=== PATIENT | female | born 1995 | race Caucasian/White ===

== ENCOUNTER 2020-04-23 12:24 | Inpatient (IN) | payer MEDICAID ==
[~2020-04-23] VITALS: Ht 172.7 cm; Wt 83.9 kg
[2020-04-23] MEDS ORDERED: IV NS 0.9% 1,000 ML BAG IV ONE ×2 (13:00→14:00)
[2020-04-23] MEDS ORDERED: LORAZEPAM INJ 2 MG/ML VIAL IV ONE (13:00)
[2020-04-23 13:47] LABS: CALCIUM, SERUM 7.1 mg/dL (8.5-10.1); CREATININE 2.3 mg/dL (0.6-1.3)
--- NOTE | 2020-04-23 13:52 | NUR ---
YONATHAN FROM [facility] WHERE PATIENT IS STAYING. AAOX4. TACHYPNEIC. BROUGHT IN FOR L UPPER BACK PAIN X 3 DAYS 05/05. PER PT, SHE HAS BEEN HAVING PAIN ON THE L UPPER BACK AND DIFFICULT TO MOVE. PT REPORTS THAT SHE DID HEROIN EARLIER THIS MORNING AROUND 1000. PT IS NOTED WITH MULTIPLE OPEN WOUND ON THE L LOWER EXTREMETY. PT IS ALSO NOTED WITH TEMP OF 103.2N ORALLY. PT IS TACHYCARDIC ON MONITOR, NOTED @ 150-160S. WAS AT THE BEDSIDE FOR EVAL. ORDERS RECEIVED NOTED AND CARRIED OUT. IV LINE ESTABLISHED ON THE R EJ 20G. BLOOD DRAWN AND GIVEN TO BREAKFAST HOST. PT IN MONITOR. EKG DONE AT BEDSIDE
[2020-04-23] MEDS ORDERED: FLUV100T3 PO (13:53)
[2020-04-23] MEDS ORDERED: CLON1TAB PO (13:53)
[2020-04-23] MEDS ORDERED: GABA600T12 PO (13:53)
[2020-04-23] MEDS ORDERED: ALBU8.5H8 IH (13:53)
[2020-04-23 13:58] LABS: BASOPHILS % (AUTO) 0.1 % (0.0-2.0); EOSINOPHILS % (AUTO) 0.2 % (0.0-6.0); HEMATOCRIT 35 % (33-45); HEMOGLOBIN 11.6 g/dL (11.5-14.8); LYMPHOCYTES # (AUTO) 0.9 /CMM (0.8-4.8); LYMPHOCYTES % (AUTO) 5.1 % (20.0-44.0); MEAN CORPUSCULAR HGB CONC 33 g/dl (31.0-36.0); MEAN CORPUSCULAR VOLUME 79 fL (82-100); MONOCYTES # (AUTO) 1.5 /CMM (0.1-1.30); MONOCYTES % (AUTO) 8.7 % (2.0-12.0); NEUTROPHILS # (AUTO) 15.3 /CMM (1.8-8.9); NEUTROPHILS % (AUTO) 85.9 % (43.0-81.0); PLATELET COUNT (AUTO) 61 /CMM (150-450); RED BLOOD CELL COUNT(AUTO) 4.48 MIL/uL (4.0-5.2); WHITE BLOOD COUNT (AUTO) 17.8 K/uL (4.3-11.0)
[2020-04-23] MEDS ORDERED: ACETAMINOPHEN ES 500 MG TABLET PO ONE (14:00)
[2020-04-23] MEDS ORDERED: VANCOMYCIN 1 GM in IV D5W 250 ML IV ONE (14:00)
[2020-04-23] MEDS ORDERED: PIPERACILLIN /TAZOBACTAM 3.375 G in IV D5W 50 ML IV ONE (14:00)
[2020-04-23 14:04] LABS: BILIRUBIN,DIRECT 1.2 mg/dL (0.0-0.2); BILIRUBIN,TOTAL 1.6 mg/dL (0.2-1.0); TOTAL PROTEIN, SERUM 6.6 g/dL (6.4-8.2)
[2020-04-23] MEDS ORDERED: ACETAMINOPHEN ES 500 MG TABLET ONE (14:07)
[2020-04-23] MEDS ORDERED: LORAZEPAM INJ 2 MG/ML VIAL ONE (14:08)
[2020-04-23 14:16] LABS: ALBUMIN 1.4 g/dL (3.4-5.0)
--- NOTE | 2020-04-23 15:15 | NUR ---
COVID SWAB DONE AND SENT TO LAB
[2020-04-23] MEDS ORDERED: TEMAZEPAM 15 MG CAPSULE PO PRN (15:30)
[2020-04-23] MEDS ORDERED: MORPHINE SULFATE INJ 2 MG/ML DISP.SYRIN IV PRN (15:30)
[2020-04-23] MEDS ORDERED: LORAZEPAM INJ 2 MG/ML VIAL IV PRN (15:30)
[2020-04-23] MEDS ORDERED: ACETAMINOPHEN 325 MG TABLET PO PRN (15:30)
[2020-04-23] MEDS ORDERED: MAG HYDROX/AL HYDROX/SIMETH 30 ML UDC PO PRN (15:30)
[2020-04-23] MEDS ORDERED: MAGNESIUM HYDROXIDE 30 ML UDC PO PRN (15:30)
[2020-04-23] MEDS ORDERED: HYDROCODONE/APAP 5/325MG TABLET PO PRN (15:30)
[2020-04-23] MEDS ORDERED: Z GUARD REMEDY 2 OZ OINT TP PRN (15:30)
[2020-04-23] MEDS ORDERED: ONDANSETRON HCL/PF 4 MG/2 ML VIAL IVP PRN (15:30)
--- NOTE | 2020-04-23 16:00 | NUR ---
GOT BED 206-1
--- NOTE | 2020-04-23 16:42 | NUR ---
LESTER PARMAR AT BEDSIDE FOR EVAL.
--- NOTE | 2020-04-23 16:47 | NUR ---
REPORT GIVEN TO MERISSA VINSON FOR ANEUDY
[2020-04-23 16:48] LABS: BAND % (MANUAL) 2 % (0.0-5.0); LYMPHOCYTES % (MANUAL) 5 % (16-48); MONOCYTES % (MANUAL) 4 % (0-11.0); NEUTROPHILS % (MANUAL) 89 (42-76)
--- NOTE | 2020-04-23 16:50 | NUR ---
MIDLINE SUCCESSFULLY ESTABLISHED ON SARIKA 18G BY DALILA PARMAR
--- NOTE | 2020-04-23 16:56 | NUR ---
PT TRANPORTED TO UNIT ON [facility] WITH EMT AND RN AT BEDSIDE W/ ACLS PROTOCOL. NAD NOTED DURING TRANSPORT.
[2020-04-23 17:00] VITALS: BP 97/50
--- NOTE | 2020-04-23 17:00 | NUR ---
RN NOTE RECEIVED THE PATIENT ON A GURNEY FROM ER. THE PATIENT IS ALERT AND ORIENTED X4. IN ROOM AIR AND DENIES SOB. RESPIRATION REGULAR AND UNLABORED. DENIES PAIN. THE PATIENT IN NO APPARENT DISTRESS. THE PATIENT IS TRANSFERRED TO BED. GAVE ORIENTATION TO THE ROOM/FLOOR. CALL LIGHT WITHIN REACH. WILL CONTINUE TO MONITOR.
[2020-04-23] MEDS: IV NS 0.9% 1,000 ML IV PRN (17:54)
[2020-04-23] MEDS: PIPERACILLIN /TAZOBACTAM 3.375 G in IV D5W 50 ML IV SCH (18:00)
--- NOTE | 2020-04-23 19:01 | NUR ---
RN NOTE THE PATIENT IS IN BED. ALERT AND ORIENTED X4. IN ROOM AIR AND SATURATION IS AT 96%. DENIES SOB. RESPIRATION REGULAR AND UNLABORED. DENIES PAIN. THE PATIENT IN NO APPARENT DISTRESS. XENIA AND SARIKA MIDLINE BOTH PATENT. NS INFUSING PER ORDER VIA SARIKA MIDLINE G 18. NO S/S INFILTRATION NOTED. BED LOW AND LOCKED. SIDE RAILS UP X2. CALL LIGHT WITHIN REACH. WILL ENDORSE TO INJECTION MOLDING MACHINE OFFBEARER.
--- NOTE | 2020-04-23 19:35 | NUR ---
STRUCTURAL ANALYSIS ENGINEER Addendum: 04/23/20 at 2327 by ANTHONY JONAS RN STRUCTURAL ANALYSIS ENGINEER: RECEIVED PATIENT Patient in bed, sleeping arouses easily. A/O x3 verbally responsive. Sinus rhythm in the Tele monitor. Facial pale, appears weak, denies shortness of breath, on room air. SARIKA MIDLINE, IVF infusing. Skin reassessment done, right heel non blanching redness. Skin; Fall precaution maintained.
[2020-04-23 20:00] VITALS: BP 85/51
[2020-04-23] MEDS ORDERED: AZITHROMYCIN 250 MG TABLET PO SCH (20:00)
--- NOTE | 2020-04-23 20:07 | NUR ---
CRITICAL LAB RESULT Lactic downtrending 2.[address] Chen with no new orders at this time.
[2020-04-23 20:59] VITALS: BP 86/58
[2020-04-23 21:08] LABS: C-REACTIVE PROTEIN 29.5 mg/dL (0.0-0.9)
[2020-04-23 23:02] VITALS: BP 92/52
[2020-04-24] VITALS: BP 94/63
[2020-04-24 00:28] VITALS: BP 94/63
[2020-04-24] MEDS: PIPERACILLIN /TAZOBACTAM 3.375 G in IV D5W 50 ML IV SCH ×3 (00:31→12:16)
[2020-04-24] MEDS: VANCOMYCIN HCL 0.75 GM in IV D5W 250 ML IV SCH ×2 (02:34→14:00)
[2020-04-24] MEDS: IV NS 0.9% 1,000 ML IV PRN (03:49)
[2020-04-24 04:00] VITALS: BP 105/60
--- NOTE | 2020-04-24 06:39 | NUR ---
FLANGING MACHINE OPERATOR: END OF SHIFT REPORT Patient in bed, adequate sleep this shift. Sinus tach in the Tele monitor HR 126 denies chest pain. SARIKA midline intact, IVF infusing, on IV abx. Afebrile overnight. Urine not collected in the ER. Urine clean catch collected, re ordered test for Urinalysis profile, urine , urine drug screen. Urine specimen send to lab. Right heel non blanchable redness, offload heels at all times. BLE wound, skin precaution maintained. Wound consult to follow. Covid test (PCR) pending result. Maintained safety.
[2020-04-24 07:07] LABS: HIV SCRN 4G wRFX Non Reactive (Non Reactive)
--- NOTE | 2020-04-24 07:10 | NUR ---
RN OPENING NOTES PATIENT IN BED RESTING. A/OX3, ABLE TO MAKE NEEDS KNOWN. NOT IN ANY FORM OF DISTRESS. NO SOB. DENIED PAIN OR DISCOMFORT AT THIS TIME. ON TELEMONITORING ST 120s. IV ACCESS INTACT AND PATENT. KEPT PATIENT SAFE AND COMFORTABLE. BED IN LOW/LOCKED POSITION, SIDERAILS UPX2,CALL LIGHT IN REACH. WILL CONTINUE TO MONITOR ACCORDINGLY
[2020-04-24] MEDS ORDERED: PANTOPRAZOLE 40 MG TABLET.DR PO SCH (07:30)
[2020-04-24 07:38] LABS: APPEARANCE,URINE SL CLOUDY (CLEAR); BILIRUBIN,URINE MODERATE (NEGATIVE); BLOOD, URINE MODERATE Ery/uL (NEGATIVE); COLOR,URINE DARK YELLO (YELLOW); KETONES,URINE NEGATIVE (NEGATIVE); LEUKOCYTE ESTERASE ,URINE TRACE (NEGATIVE); NITRITE, URINE NEGATIVE (NEGATIVE); PH,URINE 5.5 (5.0-8.0); PROTEIN,URINE TRACE mg/dl (NEGATIVE); UGLUCOSE NEGATIVE (NEGATIVE); UROBILINOGEN,URINE >=8.0 EU/dL (0.2)
[2020-04-24 08:00] VITALS: BP 114/50
[2020-04-24 10:14] LABS: BASOPHILS % (AUTO) 0.2 % (0.0-2.0); EOSINOPHILS % (AUTO) 1.5 % (0.0-6.0); HEMATOCRIT 30 % (33-45); HEMOGLOBIN 9.8 g/dL (11.5-14.8); LYMPHOCYTES # (AUTO) 1.1 /CMM (0.8-4.8); LYMPHOCYTES % (AUTO) 6.9 % (20.0-44.0); MEAN CORPUSCULAR HGB CONC 33 g/dl (31.0-36.0); MEAN CORPUSCULAR VOLUME 79 fL (82-100); MONOCYTES # (AUTO) 1.9 /CMM (0.1-1.30); NEUTROPHILS # (AUTO) 12.3 /CMM (1.8-8.9); NEUTROPHILS % (AUTO) 79.4 % (43.0-81.0); RED BLOOD CELL COUNT(AUTO) 3.82 MIL/uL (4.0-5.2); WHITE BLOOD COUNT (AUTO) 15.5 K/uL (4.3-11.0)
[2020-04-24 10:22] LABS: PLATELET COUNT (AUTO) 42 /CMM (150-450)
[2020-04-24 10:25] LABS: CALCIUM, SERUM 7.4 mg/dL (8.5-10.1); CREATININE 2.1 mg/dL (0.6-1.3); MAGNESIUM 2.4 mg/dL (1.8-2.4); PHOSPHORUS 4.4 mg/dL (2.5-4.9); POTASSIUM 3.7 mmol/L (3.5-5.1)
[2020-04-24 10:42] LABS: BACTERIA,URINE Rare /HPF (None Seen); SQUAMOUS EPITHELIAL CELL,UR Few /HPF (None Seen)
--- NOTE | 2020-04-24 10:50 | NUR ---
WOUND CARE CONSULT: REVIEWED CHART, NURSING DOCUMENTATION AND PHOTOS WHICH INDICATE RT HEEL WOUND, LOWER LEG WOUNDS, DEEP TISSUE INJURY (INTACT) TO SACRAL AREA, ALL PRESENT ON ADMISSION. RECOMMEND SURGICAL AND DPM CONSULTS PER MD. DR GRACE AND DR CHANEL NOTIFIED OF CONSULT REQUESTS. RECOMMENDATIONS MADE FOR SKIN PROTECTION. DISCUSSED WITH NURSING STAFF. MD IN AGREEMENT WITH PLAN OF CARE.
[2020-04-24] MEDS ORDERED: DEXAMETHASONE SOD PHOSPHATE 4 MG/ML VIAL IV SCH (11:00)
[2020-04-24 12:27] VITALS: BP 106/74
[2020-04-24 12:38] LABS: ABG BASE EXCESS -1.9 mmol/L; ABG OXYGEN SATURATION 93.2 % (92.0-98.5); ABG PCO2 29.6 mmHg (35.0-45.0); ABG PH 7.468 (7.350-7.450); ABG PO2 64.5 mmHg (75.0-100.0); AaDO2 100.2 mmHg; COHb 0.8 % (0.5-1.5); O2Hb 92.5 % (94.0-97.0); SITE, ABG Right Radial; VENT MODE, BG nasal cannula
[2020-04-24 12:42] LABS: BAND % (MANUAL) 2 % (0.0-5.0); LYMPHOCYTES % (MANUAL) 3 % (16-48); MONOCYTES % (MANUAL) 6 % (0-11.0); NEUTROPHILS % (MANUAL) 89 (42-76)
[2020-04-24 14:04] LABS: THYROID STIMULATING HORMONE 0.781 uIU/mL (0.358-3.74)
--- NOTE | 2020-04-24 14:30 | NUR ---
RN NOTES PATIENT WANTED TO LEAVE AMA. ASKED PATIENT THE REASON WHY SHE WANTED TO LEAVE. PER PATIENT. SHE WANTED TO TRANSFER TO ANOTHER HOSPITAL DUE TO INSURANCE PURPOSES, "MY FIANCEE ALREADY ARRANGED IT, IM GOING TO ANOTHER HOSPITAL." PER PATIENT. PER PATIENT ALSO,"ITS NOT YOUR FAULT, YOU GUYS ARE AMAZING TAKING CARE OF ME.". WILL NOTIFY MD OF AMA PLAN
--- NOTE | 2020-04-24 14:58 | NUR ---
RN NOTES: AMA PATIENT LEFT AGAINST MEDICAL ADVICE. ACCOMPANIED BY VINICIUS COLE CNA TO THE LOBBY, PICKED UP BY CLAUS. IV ACCESS REMOVED ON RIGHT EJ AND SARIKA MIDLINE, APPLIED PRESSURE, NO BLEEDING. NAME BAND REMOVED. REFUSED SKIN PHOTOS. ALL BELONGINGS RETURNED. BELONGING FORMS SIGNED. LEFT THE EXITCARE AND EDUCATIONAL MATERIALS ON THE TABLE. SALES ADMINISTRATION MANAGER AND DR RED AWARE. Addendum: 04/24/20 at 1640 by JACOBO ZEPEDA explained risk but still refused and wanted to leave.
[2020-04-24 16:12] LABS: IRON, SERUM 17 ug/dl (50-175); TOTAL IRON BINDING CAPACITY 106 ug/dl (250-450)
== END 2020-04-24 14:20 | disposition home or self-care (01) | DRG 720 ==
LOC: ER 12:27 → MEDSG2 16:19 → TELE2 17:28 → TELE-TD 17:46 → TELE2 20:15
PROVIDERS: ADMIT Nurse Practitioner Acute Care; ATTEND Internal Medicine
PROC: 05HB33Z Insertion of Infusion Device into Right Basilic Vein, Percutaneous Approach (ICD-10-PCS; principal; 2020-04-23)
DX: A41.9 Sepsis, unspecified organism (principal); J18.9 Pneumonia, unspecified organism; N17.0 Acute kidney failure with tubular necrosis; E43 Unspecified severe protein-calorie malnutrition; E87.1 Hypo-osmolality and hyponatremia; F41.9 Anxiety disorder, unspecified; F32.9 Major depressive disorder, single episode, unspecified; Z88.8 Allergy status to other drugs, medicaments and biological substances; Z79.51 Long term (current) use of inhaled steroids; Z79.899 Other long term (current) drug therapy; L03.116 Cellulitis of left lower limb; L03.115 Cellulitis of right lower limb; Y95 Nosocomial condition; E86.1 Hypovolemia; D69.6 Thrombocytopenia, unspecified; F11.20 Opioid dependence, uncomplicated; F17.200 Nicotine dependence, unspecified, uncomplicated; Z68.30 Body mass index [BMI] 30.0-30.9, adult; E66.9 Obesity, unspecified; R71.8 Other abnormality of red blood cells; K80.20 Calculus of gallbladder without cholecystitis without obstruction; Z59.0 Homelessness; E80.6 Other disorders of bilirubin metabolism; F60.3 Borderline personality disorder; L89.616 Pressure-induced deep tissue damage of right heel; K76.9 Liver disease, unspecified
CPT/HCPCS: 36415; 36600; 71045-TC; 76705-TC; 80048-TC; 80076-TC; 80305; 81000-TC; 82728-TC; 82803-TC; 83540-TC; 83605-TC; 83615-TC; 83735-TC; 83880; 84100-TC; 84443-TC; 84484-TC; 84703-TC; 85025-TC; 85378-TC; 85652-TC; 85730-TC; 86140-TC; 87040-TC; 87081-TC; 94799-TC; G0378; J1100; J2060; J2270; J2543; J3370; J7030; J7060; U0003-CS